=== PATIENT | male | born 1990 | race Caucasian/White ===

== ENCOUNTER 2022-01-17 09:02 | Emergency (ER) | payer SELFPAY ==
[2022-01-17] MEDS ORDERED: Ketorolac Tromethamine 30 MG/ML VIAL ONE (11:21)
== END 2022-01-17 11:30 | disposition home or self-care (01) ==
LOC: CSHERS 09:02
DX: S83.92XA Sprain of unspecified site of left knee, initial encounter (principal); M17.12 Unilateral primary osteoarthritis, left knee; E78.00 Pure hypercholesterolemia, unspecified; E66.9 Obesity, unspecified; X58.XXXA Exposure to other specified factors, initial encounter
CPT/HCPCS: 96372; J1885